=== PATIENT | female | born 1990 | race Native Hawaiian/Other Pacific Islander ===

== ENCOUNTER 2021-11-08 02:08 | Emergency (ER) | payer OTHER ==
[~2021-11-08] VITALS: Ht 172.7 cm; Wt 151.0 kg
[2021-11-08 03:12] LABS: PLATELET COUNT 395 K/uL (152-353)
[2021-11-08 03:25] LABS: POTASSIUM 3.7 mmol/L (3.6-5.2)
[2021-11-08 04:50] VITALS: BP 145/82; TEMP 98.1
== END 2021-11-08 04:50 | disposition home or self-care (01) ==
LOC: ED 02:08
PROVIDERS: Emergency Medicine Emergency Medical Services
DX: R09.1 Pleurisy (principal)
CPT/HCPCS: 36415; 80053; 84484; 85027; 85379; 93005; 96360; 96374; 96375; 99284; J1885; J2930

== ENCOUNTER 2021-12-07 05:39 | Emergency (ER) | payer OTHER ==
[~2021-12-07] VITALS: Ht 172.7 cm; Wt 151.0 kg
[2021-12-07 05:53] VITALS: TEMP 99.1
[2021-12-07 07:13] VITALS: BP 166/84
== END 2021-12-07 07:14 | disposition home or self-care (01) ==
LOC: ED 05:39
DX: K04.7 Periapical abscess without sinus (principal); K02.9 Dental caries, unspecified; K08.89 Other specified disorders of teeth and supporting structures; I10 Essential (primary) hypertension
CPT/HCPCS: 96372; 99283; J1885; J2175; J2405

== ENCOUNTER 2021-12-08 09:41 | Emergency (ER) | payer OTHER ==
[~2021-12-08] VITALS: Ht 172.7 cm; Wt 151.0 kg
[2021-12-08 09:45] VITALS: BP 142/81; TEMP 97.1
[2021-12-08 10:45] LABS: PLATELET COUNT 340 K/uL (152-353)
[2021-12-08 10:54] LABS: POTASSIUM 3.8 mmol/L (3.6-5.2)
== END 2021-12-08 13:00 | disposition home or self-care (01) ==
LOC: ED 09:41
PROVIDERS: Emergency Medicine
DX: K04.7 Periapical abscess without sinus (principal); R22.0 Localized swelling, mass and lump, head
CPT/HCPCS: 80048; 83605; 85027; 96365; 99283; 99284; J0696

== ENCOUNTER 2022-02-05 02:26 | Emergency (ER) | payer OTHER ==
[~2022-02-05] VITALS: Ht 172.7 cm; Wt 145.2 kg
[2022-02-05 03:26] LABS: PLATELET COUNT 350 K/uL (152-353)
[2022-02-05 03:32] LABS: POTASSIUM 3.7 mmol/L (3.6-5.2)
[2022-02-05 05:17] VITALS: BP 140/86; TEMP 98.5
== END 2022-02-05 05:20 | disposition home or self-care (01) ==
LOC: ED 02:26
PROVIDERS: Family Medicine
DX: R10.13 Epigastric pain (principal); K80.20 Calculus of gallbladder without cholecystitis without obstruction
CPT/HCPCS: 36415; 80053; 81002; 81025; 82150; 82550; 83690; 84484; 85027; 93005; 96372; 99283; J1885; J2405

== ENCOUNTER 2022-05-31 16:09 | Emergency (ER) | payer OTHER ==
[~2022-05-31] VITALS: Ht 172.7 cm; Wt 145.2 kg
[2022-05-31 16:16] VITALS: TEMP 98.7
[2022-05-31 16:31] VITALS: BP 152/92
== END 2022-05-31 17:20 | disposition home or self-care (01) ==
LOC: ED 16:09
DX: S80.01XA Contusion of right knee, initial encounter (principal); W10.8XXA Fall (on) (from) other stairs and steps, initial encounter; W54.8XXA Other contact with dog, initial encounter; Y92.89 Other specified places as the place of occurrence of the external cause
CPT/HCPCS: 81025; 99283

== ENCOUNTER 2022-07-03 17:46 | Emergency (ER) | payer OTHER ==
[~2022-07-03] VITALS: Ht 170.2 cm; Wt 139.7 kg
[2022-07-03 18:00] VITALS: BP 142/59; TEMP 97.9
[2022-07-03] MEDS ORDERED: PHENTERMINE H37.5 MG PO (18:16)
[2022-07-03] MEDS ORDERED: LISI10TA11 PO (18:16)
== END 2022-07-03 20:05 | disposition home or self-care (01) ==
LOC: ED 17:46
DX: N39.0 Urinary tract infection, site not specified (principal)
CPT/HCPCS: 81000; 81025; 87077; 87086; 87088; 87185; 87186; 99283

== ENCOUNTER 2022-07-27 23:27 | Emergency (ER) | payer OTHER ==
[~2022-07-27] VITALS: Ht 170.2 cm; Wt 131.5 kg
[~2022-07-27 23:27] MED LIST: LISI10TA11 PO; PHENTERMINE H37.5 MG PO
[2022-07-27 23:40] VITALS: TEMP 98.8
[2022-07-28 01:05] VITALS: BP 160/97
== END 2022-07-28 01:05 | disposition home or self-care (01) ==
LOC: ED 23:27
DX: K08.89 Other specified disorders of teeth and supporting structures (principal)
CPT/HCPCS: 96372; 99282; J1885

== ENCOUNTER 2022-07-28 18:29 | Emergency (ER) | payer OTHER ==
[~2022-07-28] VITALS: Ht 170.2 cm; Wt 131.5 kg
[2022-07-28 20:06] LABS: PLATELET COUNT 272 K/uL (152-353)
[2022-07-28 20:27] LABS: POTASSIUM 3.1 mmol/L (3.6-5.2); SODIUM 133 mmol/L (136-145)
[2022-07-28 21:22] VITALS: BP 136/64; TEMP 99.6
== END 2022-07-28 21:22 | disposition home or self-care (01) ==
LOC: ED 18:29
PROVIDERS: Family Medicine
DX: K08.89 Other specified disorders of teeth and supporting structures (principal)
CPT/HCPCS: 36415; 80053; 84484; 85027; 96360; 96372; 99284; J1885